=== PATIENT | male | born 1940 ===

== ENCOUNTER 2018-08-05 11:28 | Day surgery (SDC) | payer MEDICARE ==
[2018-08-05] MEDS ORDERED: Midazolam 2 MG/2 ML VIAL ONE (13:44)
[2018-08-05] MEDS ORDERED: Nitroglycerin 50mg in D5W 50 MG/250 ML BOTTLE IV ONE (13:50)
[2018-08-05] MEDS ORDERED: Verapamil 2 ML ONE (13:50)
[2018-08-05] MEDS ORDERED: Iodixanol 320 MG/ML 100 ML BOTTLE IV ONE (14:08)
[2018-08-05 15:25] VITALS: BMI 23.4
--- NOTE | 2018-08-06 00:03 | CARDCATH ---
PROCEDURE DATE: 08/05/2018 INDICATIONS: Kalia is a pleasant 78-year-old male admitted to [facility] after having an episode of dyspnea, shortness of breath and confusion. On presentation, he was ruled in for acute coronary syndrome with non-ST elevation WI, because of renal dialysis he was optimizing medical therapy and was subsequently transferred over to the [facility] for further evaluation of non-STEMI. PROCEDURE PERFORMED: Left heart catheterization with selective left and right coronary angiogram via left radial approach, 6-Danish radial arterial access, left ventriculogram, wrist band for hemostasis. ANGIOGRAPHIC FINDINGS: Left main is a large sized vessel bifurcates into left anterior descending and left circumflex coronary artery. The left circumflex runs in the AV groove, gives off a large obtuse marginal branch with mild obstructive disease. Left circumflex proximal, mid, distal 0%. Obtuse marginal proximal and mid distal is 30%. Left anterior descending is a large-sized vessel, has a mid 65% to 70% calcified stenosis gives off a large sized diagonal branch, which has approximately 70% stenosis. Left ventricular ejection fraction 65%. IMPRESSION: Two-vessel coronary artery disease, normal ejection fraction. RECOMMENDATION: The patient will need staged intervention of the LAD with possible atherectomy secondary to severely calcified LAD stenosis. Valerio Hazel MD MTDMarcelo
--- NOTE | 2018-08-07 14:29 | CP.PCM.PN ---
Subjective - Date & Time of Evaluation Date of Evaluation: 08/06/18 Time of Evaluation: 17:00 - Subjective Subjective: feeling fine s/p LHCx showing mid LAD stenosis 75% Objective - Constitutional Appears: Well - Head Exam Head Exam: ATRAUMATIC, NORMAL INSPECTION, NORMOCEPHALIC - Eye Exam Eye Exam: EOMI, Normal appearance, PERRL Pupil Exam: NORMAL ACCOMODATION, PERRL - ENT Exam ENT Exam: Mucous Membranes Moist, Normal Exam - Neck Exam Neck Exam: Full ROM, Normal Inspection. absent: Lymphadenopathy - Respiratory Exam Respiratory Exam: Clear to Ausculation Bilateral, NORMAL BREATHING PATTERN - Cardiovascular Exam Cardiovascular Exam: REGULAR RHYTHM, +S1, +S2, Murmur - GI/Abdominal Exam GI & Abdominal Exam: Soft, Normal Bowel Sounds. absent: Tenderness - Extremities Exam Extremities Exam: Full ROM, Normal Capillary Refill, Normal Inspection. absent: Joint Swelling, Pedal Edema - Back Exam Back Exam: NORMAL INSPECTION - Neurological Exam Neurological Exam: Alert, Awake, CN II-XII Intact, Normal Gait, Oriented x3 - Psychiatric Exam Psychiatric exam: Normal Affect, Normal Mood - Skin Skin Exam: Dry, Intact, Normal Color, Warm Assessment and Plan (1) NSTEMI (non-ST elevated myocardial infarction) Assessment & Plan: s/p LHCx showing mid LAD stenosis cont dapt cont bb, statins plan for PCI of mLAD post HD after discussing with familiy Status: Acute (2) Chest pain Status: Acute (3) Chronic kidney disease, stage 5 Status: Acute (4) History of CVA (cerebrovascular accident) Status: Chronic (5) Hypertension Status: Chronic
--- NOTE | 2018-08-07 14:31 | CP.PCM.PN ---
Subjective - Date & Time of Evaluation Date of Evaluation: 08/07/18 Time of Evaluation: 14:31 - Subjective Subjective: SOB with ambulation discussed with daughter Elizabeth at bedside about cath findings and plan of care Objective - Constitutional Appears: Well - Head Exam Head Exam: ATRAUMATIC, NORMAL INSPECTION, NORMOCEPHALIC - Eye Exam Eye Exam: EOMI, Normal appearance, PERRL Pupil Exam: NORMAL ACCOMODATION, PERRL - ENT Exam ENT Exam: Mucous Membranes Moist, Normal Exam - Neck Exam Neck Exam: Full ROM, Normal Inspection. absent: Lymphadenopathy - Respiratory Exam Respiratory Exam: Clear to Ausculation Bilateral, NORMAL BREATHING PATTERN - Cardiovascular Exam Cardiovascular Exam: REGULAR RHYTHM, +S1, +S2, Murmur - GI/Abdominal Exam GI & Abdominal Exam: Soft, Normal Bowel Sounds. absent: Tenderness - Extremities Exam Extremities Exam: Full ROM, Normal Capillary Refill, Normal Inspection. absent: Joint Swelling, Pedal Edema - Back Exam Back Exam: NORMAL INSPECTION - Neurological Exam Neurological Exam: Alert, Awake, CN II-XII Intact, Normal Gait, Oriented x3 - Psychiatric Exam Psychiatric exam: Normal Affect, Normal Mood - Skin Skin Exam: Dry, Intact, Normal Color, Warm Assessment and Plan (1) NSTEMI (non-ST elevated myocardial infarction) Assessment & Plan: plan for PCI of mLAD to be scheduled at [facility] [place] cont asa, plavix statins bb Status: Acute (2) Chest pain Status: Acute (3) Chronic kidney disease, stage 5 Status: Acute (4) History of CVA (cerebrovascular accident) Status: Chronic (5) Hypertension Status: Chronic
== END 2018-08-06 18:35 | disposition home or self-care (01) ==
LOC: C.CATHLAB 11:28
PROVIDERS: ATTEND Internal Medicine Interventional Cardiology
DX: I25.10 Atherosclerotic heart disease of native coronary artery without angina pectoris (principal); I21.4 Non-ST elevation (NSTEMI) myocardial infarction; N18.5 Chronic kidney disease, stage 5; Z79.02 Long term (current) use of antithrombotics/antiplatelets; Z86.73 Personal history of transient ischemic attack (TIA), and cerebral infarction without residual deficits; Z99.2 Dependence on renal dialysis; I12.0 Hypertensive chronic kidney disease with stage 5 chronic kidney disease or end stage renal disease; I25.84 Coronary atherosclerosis due to calcified coronary lesion
CPT/HCPCS: 82948; 93458; 99152; 99153; C1769; C1887; J1644; J2001; J2250; J3010; Q9967